=== PATIENT | male | born 1995 | race Caucasian/White ===

== ENCOUNTER 2019-10-25 08:20 | Emergency (ER) | payer OTHER ==
--- NOTE | 2019-10-25 08:52 | EDM.PDOC ---
ED HPI GENERAL MEDICAL PROBLEM - General Chief Complaint: ENT Problem Stated Complaint: EAR INFECTION Time Seen by Provider: 10/25/19 08:39 Source of Information: Reports: Patient History Limitations: Reports: No Limitations - History of Present Illness INITIAL COMMENTS - FREE TEXT/NARRATIVE: no medical problems, non smoker, here for one week of ear fullness, on and off for a few weeks now. sometimes earache, none now. scratchy throat for 2 days. no fever, no cough, no nausea no vomiting. had root canal this week for which he was given clindamycin. slightly decreased hearing on the right. no headaches , no vomiting, no associated symptoms. 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 ) Right Ear Pain Score (Numeric/FACES): 6 - Related Data Allergies Allergy/AdvReac Type Severity Reaction Status Date / Time Penicillins Allergy Hives Verified 10/25/19 08:43 Home Meds: Home Meds Clindamycin HCl 150 mg PO QID 10/25/19 [History] Past Medical History - Past Health History Medical/Surgical History: Denies Medical/Surgical History HEENT History: Reports: None - Past Surgical History HEENT Surgical History: Reports: Myringotomy w Tube(s) Social & Family History - Family History Family Medical History: Noncontributory - Tobacco Use Smoking Status *Q: Former Smoker Used Tobacco, but Quit: Yes Month/Year Tobacco Last Used: 2019 - Caffeine Use Caffeine Use: Reports: Coffee, Soda - Recreational Drug Use Recreational Drug Use: No ED ROS ENT - Review of Systems Review Of Systems: See Below Constitutional: Reports: No Symptoms Respiratory: Reports: No Symptoms Cardiovascular: Reports: No Symptoms Endocrine: Reports: No Symptoms GI/Abdominal: Reports: No Symptoms : Reports: No Symptoms Musculoskeletal: Reports: No Symptoms Skin: Reports: No Symptoms Neurological: Reports: No Symptoms Psychiatric: Reports: No Symptoms Hematologic/Lymphatic: Reports: No Symptoms Immunologic: Reports: No Symptoms ED EXAM, ENT - Physical Exam Exam: See Below Exam Limited By: No Limitations General Appearance: Alert, No Apparent Distress Ears: Normal External Exam, Normal Canal, Hearing Grossly Normal, Other (right TM shiny, intact, left had some scarring but also grossly intact- no mastoid tenderness) Nose: Normal Inspection Mouth/Throat: Normal Inspection. No: Dental Abcess, Dental Pain, Dental Tenderness, Dental Trauma, Drooling, Dry Mucous Membrane, Gum Swelling, Hoarse Voice, Lip Swelling, Lip Ulcers, Muffled Voice, Throat Swelling, Tongue Swelling , Tonsillar Erythema, Tonsillar Exudates, Tonsillar Swelling, Trismus, Uvular Deviation, Uvular Edema Head: Atraumatic Neck: Normal Inspection. No: Lymphadenopathy (L) Respiratory/Chest: No Respiratory Distress Cardiovascular: Regular Rate, Rhythm Neurological: Alert, Oriented, Normal Cognition, Normal Gait Psychiatric: Normal Affect Skin: Warm Lymphatic: No Adenopathy (in the neck) Course - Vital Signs Last Recorded V/S: Last Vital Signs Temp 96.7 F L 10/25/19 08:41 Pulse 99 10/25/19 08:41 Resp 18 10/25/19 08:41 BP 122/64 10/25/19 08:41 Pulse Ox 99 10/25/19 08:41 - Re-Assessments/Exams Free Text/Narrative Re-Assessment/Exam: 10/25/19 08:54 no distress, afebrile, no signs of ear infection on exam.no ear impaction on exam. patient pain free right now, already taking clindafor tooth procedure. Told patient to follow up with ENT. Also told him to return to ED if he developed worsening pain fever headache or any concerns. throat was normal on exam no lymphadenopathy afebrile patient opted to forego strep testing, low suspicion Departure - Departure Time of Disposition: 09:03 Disposition: Home, Self-Care 01 Condition: Good Clinical Impression: Ear ache - Discharge Information Instructions: Earache, Adult Referrals: Anish Ibrahim [Ordering Only Provider] - PCP,None [Primary Care Provider] - (ENT ) Forms: ED Department Discharge Additional Instructions: Follow up with ENT, return to ED if you have any concerns Sepsis Event Note - Evaluation Sepsis Screening Result: No Definite Risk - Focused Exam Vital Signs: Vital Signs Temp Pulse Resp BP Pulse Ox 10/25/19 08:41 96.7 F L 99 18 122/64 99 Date Exam was Performed: 10/25/19 Time Exam was Performed: 19:38
== END 2019-10-25 09:10 | disposition home or self-care (01) ==
LOC: MW.ED 08:20
DX: H92.01 Otalgia, right ear (principal); Z88.0 Allergy status to penicillin; Z87.891 Personal history of nicotine dependence
CPT/HCPCS: 99282